=== PATIENT | male | born 1985 | race Caucasian/White ===

== ENCOUNTER 2016-09-02 18:11 | Emergency (ER) | payer MEDICAID, OTHER ==
[~2016-09-02] VITALS: Ht 193 cm; Wt 99.0 kg
[~2016-09-02 18:11] MED LIST: HALO5VIA2 IM; Lorazepam PO; ONDA4TAB13 PO
[2016-09-02] MEDS ORDERED: SODIUM CHLORIDE FLUSH 10ML SYR IVF ONE (19:30)
[2016-09-02] MEDS ORDERED: CLINDAMYCIN PMX 900MG/50ML 50 ML IV ONE (19:30)
[2016-09-02] MEDS ORDERED: CLINDAMYCIN PMX 900MG/50ML 50 ML ONE (19:33)
[2016-09-02 19:53] LABS: BLOOD UREA NITROGEN 13 mg/dL (7-18)
[2016-09-02 20:41] VITALS: BP 127/78
== END 2016-09-02 21:00 | disposition home or self-care (01) ==
LOC: ED 20:54
DX: L03.116 Cellulitis of left lower limb (principal); L03.115 Cellulitis of right lower limb; L03.114 Cellulitis of left upper limb; L73.9 Follicular disorder, unspecified; F15.10 Other stimulant abuse, uncomplicated; F11.10 Opioid abuse, uncomplicated
CPT/HCPCS: 36415; 80048; 82040; 85025; 87040; 96365

== ENCOUNTER 2020-10-04 08:23 | Emergency (ER) | payer SELFPAY ==
[~2020-10-04] VITALS: Ht 182.9 cm; Wt 70.0 kg
[2020-10-04 08:30] VITALS: BP 158/87
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
--- NOTE | 2020-10-04 08:39 | NUR ---
PT AMBULATED TO RM 40 FROM RM 18 ACCOMPANIED BY ED TECHS WITH ALL PERSONAL BELONGINGS. Addendum: 10/04/20 at 0855 by LOVE PT AMBULATED TO RM 40 FROM RM 18 ACCOMPANIED BY ED TECHS WITH ALL PERSONAL BELONGINGS, SITTER IN VIEW.
--- NOTE | 2020-10-04 08:40 | NUR ---
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
[2020-10-04] MEDS ORDERED: OLANZAPINE ODT 10MG PO ONE (09:00)
== END 2020-10-04 10:32 | disposition home or self-care (01) ==
LOC: ED 10:17
DX: F11 Opioid related disorders (principal); F15.922 Other stimulant use, unspecified with intoxication with perceptual disturbance
CPT/HCPCS: 99283

== ENCOUNTER 2020-10-17 02:48 | Emergency (ER) | payer OTHER ==
[~2020-10-17] VITALS: Ht 193 cm; Wt 91.0 kg
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
--- NOTE | 2020-10-17 05:15 | NUR ---
ERP AT BEDSIDE
[2020-10-17] MEDS ORDERED: METHOCARBAMOL 750 MG TABLET ONE (05:25)
[2020-10-17] MEDS ORDERED: IBUPROFEN 600 MG TABLET ONE (05:25)
[2020-10-17] MEDS ORDERED: METHOCARBAMOL 750 MG TABLET PO ONE (05:30)
[2020-10-17] MEDS ORDERED: IBUPROFEN 600 MG TABLET PO ONE (05:30)
--- NOTE | 2020-10-17 06:04 | NUR ---
Patient given discharge instructions and they have confirmed that they understand the instructions. Patient ambulatory with steady gait. NAD, all questions answered appropriately, denies additional needs at this time. No personal belongings left in room after discharge.
[2020-10-17 06:05] VITALS: BP 120/82
== END 2020-10-17 06:07 | disposition home or self-care (01) ==
LOC: ED 05:17
DX: M54.42 Lumbago with sciatica, left side (principal); F17.200 Nicotine dependence, unspecified, uncomplicated; I10 Essential (primary) hypertension
CPT/HCPCS: 99283

== ENCOUNTER 2020-11-02 03:03 | Emergency (ER) | payer MEDICAID ==
[~2020-11-02] VITALS: Ht 193 cm; Wt 85.0 kg
[2020-11-02 03:13] VITALS: BP 149/86
[2020-11-02] MEDS ORDERED: LORazepam 1MG TABLET ONE (03:28)
[2020-11-02] MEDS ORDERED: LORazepam 1MG TABLET PO ONE (03:30)
[2020-11-02 03:31] LABS: BASOPHILS % (AUTO) 1 % (0-1); EOSINOPHILS % (AUTO) 1 % (1-7); LYMPHOCYTES % (AUTO) 23 % (22-44); MEAN CORPUSCULAR HEMOGLOBIN 32.9 pg (27.5-34.5); MEAN CORPUSCULAR HGB CONC 35.4 g/dL (33.2-36.2); MEAN PLATELET VOLUME 6.9 fL (7.4-10.4); MONOCYTES % (AUTO) 11 % (2-9); NEUTROPHILS % (AUTO) 65 % (42-75); PLATELET COUNT 326 x10^3/uL (130-400); RED BLOOD COUNT 4.34 x10^6/uL (4.38-5.82); RED CELL DISTRIBUTION WIDTH 13.1 % (9.4-14.8)
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
[2020-11-02 03:39] LABS: ALANINE AMINOTRANSFERASE 47 U/L (12-78); ALBUMIN 3.6 g/dL (3.4-5.0); ANION GAP 7 mmol/L (5-15); CALCIUM 8.2 mg/dL (8.5-10.1); CHLORIDE 107 mmol/L (98-107); CREATININE 1.33 mg/dL (0.7-1.3); SALICYLATE LEVEL 1.9 mg/dL (2.8-20.0)
[2020-11-02 03:41] LABS: ALKALINE PHOSPHATASE 99 U/L (45-117); BILIRUBIN,TOTAL 0.4 mg/dL (0.2-1.0); TOTAL PROTEIN 7.7 g/dL (6.4-8.2)
--- NOTE | 2020-11-02 04:28 | NUR ---
PT STANDING IN ROOM NEXT TO DOOR, PT DOES NOT WANT TO SIT OR LAY DOWN IN BED, PT A/OX4, GARAGE DOORS DOWN
[2020-11-02] MEDS ORDERED: LORazepam 2 MG/ML, 1ML ONE (04:48)
[2020-11-02] MEDS ORDERED: DIPHENHYDRAMINE 50 MG/ML, 1ML ONE (04:48)
[2020-11-02] MEDS ORDERED: HALOPERIDOL 5 MG/ML ONE (04:48)
--- NOTE | 2020-11-02 04:48 | NUR ---
THROUGHPUT RN: PT UP OUT OF ROOM AT NURSES STATION STATING, "I DONT NEED TO BE HERE, I JUST WANT TO GO AND ILL CHECK MYSELF INTO [facility]", STAFF INFORMED PT THAT HE IS UNABLE TO LEAVE AT THIS TIME DUE TO L2K AND EVENTS THAT TOOK PLACE TONIGHT, SECURITY ASSISTING PT BACK TO ROOM AT THIS TIME.
[2020-11-02] MEDS ORDERED: HALOPERIDOL 5 MG/ML IM ONE (05:00)
[2020-11-02] MEDS ORDERED: LORazepam 2 MG/ML, 1ML IM ONE (05:00)
[2020-11-02] MEDS ORDERED: DIPHENHYDRAMINE 50 MG/ML, 1ML IM ONE (05:00)
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
[2020-11-02 05:56] LABS: AMPHETAMINE SCREEN, URINE Positive (Negative); BARBITURATE SCREEN, URINE Negative (Negative); BENZODIAZEPINE SCREEN, URINE Negative (Negative); CANNABINOID SCREEN, URINE Negative (Negative); COCAINE SCREEN, URINE Negative (Negative); METHADONE SCREEN, URINE Negative (Negative); OPIATE SCREEN, URINE Positive (Negative)
== END 2020-11-02 05:42 | disposition left against medical advice (07) ==
LOC: ED 05:36
DX: F15.122 Other stimulant abuse with intoxication with perceptual disturbance (principal); Z72.9 Problem related to lifestyle, unspecified; I10 Essential (primary) hypertension; F17.200 Nicotine dependence, unspecified, uncomplicated
CPT/HCPCS: 36415; 80053; 80299; 80307; 80320; 80329; 85025; 99283; G0480